=== PATIENT | male | born 1975 | race African-American/Black ===

== ENCOUNTER 2017-02-17 19:01 | Emergency (ER) | payer OTHER ==
[~2017-02-17] VITALS: Ht 182.9 cm; Wt 111.1 kg
[2017-02-17] MEDS ORDERED: ATENOLOL 25 MG25 M1 PO (19:20)
[2017-02-17] MEDS ORDERED: DOXYCYCLINE 10100 MG PO (20:09)
[2017-02-17 20:23] VITALS: BP 127/86
== END 2017-02-17 20:23 | disposition home or self-care (01) ==
LOC: M.ERS 19:01
DX: L02.11 Cutaneous abscess of neck (principal); I10 Essential (primary) hypertension